=== PATIENT | male | born 1955 | race Caucasian/White ===

== ENCOUNTER 2017-03-31 10:35 | Day surgery (SDC) | payer OTHER ==
[~2017-03-31] VITALS: Ht 172.7 cm; Wt 88.0 kg
--- NOTE | ~2017-03-31 | EGD ---
EGD REPORT [facility] [address] [place]. [address] NAME: SAVITA ALMONTE : 55 STATUS : REG [facility]#: [id number] AGE: 62 ADM/REG DATE : 03/31/17 MR#: [id number] REPORT SERV DATE: 03/31/17 DICTATED BY: MARIA ALEJANDRA CHILDS DATE: 03/31/17 REPORT STATUS : Draft TRANSCRIBED BY: [facility] DATE: 03/31/17 Pulmonology Patient Name: Savita Almonte Procedure Date: 03/31/2017 3:06 PM Date of : 1955 Attending MD: FRED CHILDS MD Procedure Date No Time: 03/31/2017 Procedure: EBUS Navigational Bronchoscopy Indications: LLL lung nodule Providers: FRED CHILDS MD Referring MD: Jersey Landry Medicines: Lidocaine 2% 20 mL Complications: No immediate complications Procedure: Pre-Anesthesia Assessment: - A History and Physical has been performed. Patient meds and allergies have been reviewed. The risks and benefits of the procedure and the sedation options and risks were discussed with the patient. All questions were answered and informed consent was obtained. Patient identification and proposed procedure were verified prior to the procedure by the physician and the nurse in the pre-procedure area in the procedure room. Mental Status Examination: alert and oriented. Airway Examination: normal oropharyngeal airway. Respiratory Examination: clear to auscultation. CV Examination: RRR, no murmurs, no S3 or S4. ASA Grade Assessment: III - A patient with severe systemic disease. After reviewing the risks and benefits, the patient was deemed in satisfactory condition to undergo the procedure. The anesthesia plan was to use general anesthesia. Immediately prior to administration of medications, the patient was re-assessed for adequacy to receive sedatives. The heart rate, respiratory rate, oxygen saturations, blood pressure, adequacy of pulmonary ventilation, and response to care were monitored throughout the procedure. The physical status of the patient was re-assessed after the procedure. - ASA Grade Assessment: III - A patient with severe systemic disease. After obtaining informed consent, the Bronchoscope was introduced through the mouth, via the endotracheal tube (the patient was intubated for the procedure) and advanced to the tracheobronchial tree. The BF [id number] was introduced through the mouth, via the endotracheal tube (the patient was intubated for the procedure) and advanced to the tracheobronchial tree. EGD REPORT [address] [address] NAME: SAVITA ALMONTE : [birth year] STATUS : REG [facility]#: [id number] AGE: 62 ADM/REG DATE : 03/31/17 MR#: [id number] REPORT SERV DATE: 03/31/17 DICTATED BY: MARIA ALEJANDRA CHILDS DATE: 03/31/17 REPORT STATUS : Draft TRANSCRIBED BY: [facility] [facility] DATE: 03/31/17 The procedure was accomplished without difficulty. The patient tolerated the procedure well. Findings: The endotracheal tube is in good position. The visualized portion of the trachea is of normal caliber. The adryan is sharp. The tracheobronchial tree was examined to at least the first subsegmental level. Bronchial mucosa and anatomy are normal; there are no endobronchial lesions, and no secretions. EBUS TBNA of lymph node level 11R x 4 passes for cytology EBUS TBNA of lymph node level 4R x 4 passes for cytology EBUS TBNA of lymph node level 7 x 4 passes for cytology EBUS TBNA of lymph node level 4L x 4 passes for cytology EBUS TBNA of lymph node level 11L x 4 passes for cytology Using SuperDimension Edge catheter 180, peripheral probe EBUS 17s, and fluoroscopy, I performed the following biopsies: LLL lung nodule transbronchial needle aspirates x 6 passes for cytology LLL lung nodule transbronchial brush biopsies x 2 passes for cytology LLL lung nodule transbronchial forcep biopsies x 9 passes for histopathology Bronchoalveolar lavage was performed in the left lower lobe of the lung and sent for routine cytology. 40 mL of fluid were instilled. 30 mL were returned. The return was blood-tinged and cellular. 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 Recommendation: - Await test results. - Chest X-ray. - Follow up with referring physician, Dr. Landry - Refer to/consult with Thoracic Surgery, Dr. Palma - Complete pulmonary function tests, PET scan, and MRI of the brain with and without contrast to assess operability. Attending Participation: I personally performed the entire procedure. FRED CHILDS MD 03/31/2017 5:15 PM This report has been signed electronically. Number of Addenda: 0 Note Initiated On: 03/31/2017 3:06 PM [address] [place] [address]
[~2017-03-31 10:35] MED LIST: ASAB PO; BREO ELLIPTA INH; CLARIT10 PO; INCRUSE ELLI62.5 MCG INH; NORV5 PO; SINGULAIR1 PO
[2017-03-31 11:19] LABS: BASOPHILS 0.4 %; BASOPHILS ABSOLUTE 0.03 10/3/uL (0.0-0.16); EOSINOPHILS 3.5 %; EOSINOPHILS ABSOLUTE 0.26 10/3/uL (0.0-0.53); HEMATOCRIT 47.8 % (40.0-51.0); HEMOGLOBIN 15.8 g/dL (13.6-17.8); IMMATURE GRANULOCYTES 0.3 %; IMMATURE GRANULOCYTES ABSOLUTE 0.02 10/3/uL (0.0-0.11); LYMPHOCYTES 26.6 %; LYMPHOCYTES ABSOLUTE 1.95 10/3/uL (0.67-4.30); MEAN CORPUS HGB CONC 33.1 g/dL (32.0-36.0); MEAN CORPUSCULAR HEMOGLOB 29.9 pg (26.0-34.0); MEAN CORPUSCULAR VOLUME 90.5 fL (80-100); MEAN PLATELET VOLUME 9.6 fL (9.2-13.0); MONOCYTES 8.6 %; MONOCYTES ABSOLUTE 0.63 10/3/uL (0.21-1.20); NEUTROPHILS 60.6 %; NEUTROPHILS ABSOLUTE 4.45 10/3/uL (2.02-8.40); PLATELET COUNT 275 10/3/uL (150-400); RBC DISTRIBUTION WIDTH 13.7 % (12.0-16.0); RED CELL COUNT 5.28 10/6/uL (4.7-6.1); WHITE BLOOD CELLS 7.3 10/3/uL (4.5-10.5)
[2017-03-31 11:24] LABS: MANUAL DIFF NO %
[2017-03-31 11:25] LABS: PROTIME (NOT ORD) 12.7 SEC (12.0-14.5)
[2017-03-31 11:26] LABS: PARTIAL THROMBO TIME 28.8 SEC (22.5-37.2)
[2017-03-31 11:32] LABS: BUN (BLOOD UREA NITROGEN) 9 MG/DL (6-23); CALCIUM, SERUM 9.1 MG/DL (8.5-10.4); CHLORIDE, SERUM 105 MMOL/L (96-112); CO2 (CARBON DIOXIDE) 31 MMOL/L (24-34); GFR AFRICAN AMERICAN 93 ML/MIN (>=60); GFR NON AFRICAN AMERICAN 80 ML/MIN (>=60); GLUCOSE, SERUM 91 MG/DL (60-99); POTASSIUM, SERUM 4.7 MMOL/L (3.5-5.3); SODIUM, SERUM 141 MMOL/L (135-148)
== END 2017-03-31 20:43 | disposition home or self-care (01) ==
LOC: DMU 10:35
PROVIDERS: Anesthesiology; Internal Medicine
PROC: 0B9J8ZX Drainage of Left Lower Lung Lobe, Via Natural or Artificial Opening Endoscopic, Diagnostic (ICD-10-PCS; principal; 2017-03-31 12:30)
PROC: 0BBJ8ZX Excision of Left Lower Lung Lobe, Via Natural or Artificial Opening Endoscopic, Diagnostic (ICD-10-PCS; 2017-03-31 12:30)
PROC: 0BBJ8ZX Excision of Left Lower Lung Lobe, Via Natural or Artificial Opening Endoscopic, Diagnostic (ICD-10-PCS; 2017-03-31 12:30)
PROC: 07B74ZX Excision of Thorax Lymphatic, Percutaneous Endoscopic Approach, Diagnostic (ICD-10-PCS; 2017-03-31 12:30)
DX: C34.32 Malignant neoplasm of lower lobe, left bronchus or lung (principal); I10 Essential (primary) hypertension; J44.9 Chronic obstructive pulmonary disease, unspecified; Z87.891 Personal history of nicotine dependence; Z88.8 Allergy status to other drugs, medicaments and biological substances; Z79.82 Long term (current) use of aspirin; Z79.899 Other long term (current) drug therapy; Z85.51 Personal history of malignant neoplasm of bladder
CPT/HCPCS: 71010; 80048; 85025; 85610; 85730; 88112; 88172; 88173; 88305; 88333; 88334; 88344; 93005; A9270-GY; C1725; J2250; J2370; J2405; J2710; J3010